=== PATIENT | male | born 1985 | race Caucasian/White ===

== ENCOUNTER 2024-12-30 02:46 | Emergency (ER) | payer BC, SELFPAY ==
[2024-12-30 02:46] VITALS: BMI 29.1
[2024-12-30 02:56] VITALS: BP 135/89; PULSE 80; RESP 17; TEMP 36.7; O2SAT 97
--- NOTE | 2024-12-30 03:30 | EDNOTE_ITS ---
ED Dental RME/HPI General Chief complaint: General Adult/Misc Complain Stated complaint: HIGH BLOOD GLUCOSE Time Seen by Provider: 12/30/24 03:20 Source: patient Arrival date/time: 12/30/24 02:46 Mode of arrival: ambulatory Limitations: no limitations RME / HPI RME / HPI Narrative: Dr. Machado?s Main ED Evaluation: 39-year-old male presents to the ED for evaluation of a tooth infection. He reports that he broke a tooth approximately two years ago but has been unable to seek dental care due to lack of insurance. Over the past few days, he has developed facial swelling and is seeking antibiotics for the infection. The patient describes the discomfort as infection pain rather than typical dental pain. He denies fever, chills, difficulty swallowing, difficulty breathing, or other systemic symptoms. No recent trauma or other medical complaints at this time. Related Data Home Medications ?Medication ?Instructions ?Recorded ?Confirmed Insulin Regular * (HUMULIN R *) 40 unit subcut DAILY # #0 04/24/13 insulin NPH isoph U-100 human 100 40 unit subcut CHAMBERLAIN ##0 04/24/13 unit/mL subcutaneous suspension (Humulin N NPH U-100 Insulin (isophane susp)) Previous Rx's ?Medication ?Instructions ?Recorded erythromycin 5 mg/gram (0.5 %) eye 1 ribbon Right eye QID 7 days ##0 04/24/13 ointment cephalexin 750 mg capsule (Keflex) 750 mg PO Q12H #14 caps 04/09/21 hydrocodone 5 mg-acetaminophen 325 1 tab PO BID PRN pa in #10 tabs 01/23/23 mg tablet ibuprofen 800 mg tablet 800 mg PO TID PRN pain #30 t abs 01/23/23 penicillin V potassium 500 mg 500 mg PO QID Dental inf ection 10 12/30/24 tablet days #40 tabs Allergies Allergy/AdvReac Type Severity Reaction Status Date / Time No Known Allergies Allergy Verified 12/30/24 02:50 Review of Systems Review of Systems Systems Reviewed: All systems reviewed, normal except as documented Past Medical History Past Medical History CARDIAC: Negative Congestive Heart Failure RESPIRATORY: Negative Chronic Obstructive Pulmonary Disease (COPD) GENITOURINARY: Negative Renal Disease ENDOCRINE: Positive Diabetes Mellitus Type 1; Negative Diabetes Mellitus Type 2 Social History SMOKING STATUS: Never smoker ED Exam Narrative Physical exam: The patient has poor dentition, with severe decay extending below the gumline on tooth #30, accompanied by adjacent gingival erythema, swelling, and tenderness. No visible abscess or drainage at this time. General Limitations: Present no limitations General appearance: Present alert and in no apparent distress Head Head exam: Present atraumatic Eye Eye exam: Present normal appearance, PERRL and EOMI ENT ENT exam: Present normal exam, normal oropharynx and mucous membranes moist Neck Neck exam: Present normal inspection, full ROM and trachea midline Chest Chest inspection: Present normal inspection and symmetric chest wall rise Respiratory Respiratory exam: Present normal lung sounds bilaterally Cardiovascular Cardiovascular exam: Present regular rate, normal rhythm and normal heart sounds Abdominal Exam Abdominal exam: Present soft and normal bowel sounds Extremities Exam Extremities exam: Present normal inspection and full ROM Back Exam Back exam: Present normal inspection and full ROM Neurological Exam Neurological exam: Present alert, oriented X3 and CN II-XII intact Psychiatric Psychiatric exam: Present normal affect and normal mood Skin Skin exam: Present warm, dry, intact and normal color Course Quality Measures none Orders Category Date Time Status Blood glucose [Bedside Blood Glucose] NOW Care 12/30/24 03:00 Active Vital Signs Vital signs: Vital Signs Temperature 98.1 F 12/30/24 02:56 Pulse Rate 80 12/30/24 02:56 Respiratory Rate 17 12/30/24 02:56 Blood Pressure 135/89 H 12/30/24 02:56 Pulse Oximetry (%) 97 12/30/24 02:56 Oxygen Delivery Method Room Air 12/30/24 02:56 Dental / Oral MDM Narrative MDM Narrative:: Scribe Attestation: Sary Lemons am scribing for and in the presence of Dr. Machado. Provider Notation: Although this document has been carefully reviewed, there may still be some phonetic and other typographical errors. These errors are purely grammatical due to imperfections in the software program and should not be construed in any way to compromise the substance of the patient's medical care during this visit. Patient data External records reviewed:: [facility] previous records Clinical information provided by:: patient Social determinants that could affect healthcare access:: none Patient has the following chronic illnesses:: T1DM How is presenting disease/condition affected by chronic disease/condition?: uneffected by Evaluation data The following diagnostics were reviewed and interpreted by me:: other (specify) (na) Lab and/or radiology exams considered but not ordered:: na Interpretation Summary: na Medications / Prescriptions Medications or Prescriptions considered but not ordered:: na Medication administrations:: na Consultations Consultation(s) initiated? (list below): No Diagnosis Dental Differential Diagnosis: gingival abscess, dental caries, toothache, den anika abscess and fracture of tooth Most likely diagnosis given after review of the tests above:: Dental infection Admission Indicated Admission indicated?: not indicated Admission Request Was there a request for admission?: No Disposition Plan Disposition Plan: Admit Discharge Plan Plan Patient Disposition: HOME (Self Care) Disposition Comment: Safe for discharge home Patient condition on transfer: Stable Prescriptions/Referrals Prescriptions/Med Rec: New penicillin V potassium 500 mg tablet 500 mg PO QID 10 Days Qty: 40 0RF No Action insulin NPH isoph U-100 human [Humulin N NPH U-100 Insulin] 100 U/ML suspension 40 unit Sub-Q CHAMBERLAIN Qty: 0 Insulin Regular * (HUMULIN R *) 100 U/ML VIAL 40 unit Sub-Q DAILY Qty: 0 erythromycin 1 GM ointment 1 ribbon Right eye QID 7 Days Qty: 0 0RF cephalexin [Keflex] 750 mg capsule 750 mg PO Q12H Qty: 14 0RF ibuprofen 800 mg tablet 800 mg PO TID PRN (Reason: pain) Qty: 30 0RF hydrocodone-acetaminophen 5-325 mg tablet 1 tab PO BID MDD 10 PRN (Reason: pain) Qty: 10 0RF Problem List Clinical Impression: Dental infection Patient/Caregiver Discharge Instructions Discharge Activity: activity as tolerated Education Materials: ED Tooth Abscess Additional Instructions: Please return to the emergency department if you have any worsening or any further medical problems and we will help you. 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 You should take 1 penicillin pill 4 times per day until they are completely gone even if you feel better before that. You should also follow-up with a dentist [facility]. Print Language: Burkinan Stand Alone Forms: Erin Award Info., Patient Portal Info Letter
[2024-12-30] MEDS: PENICILLIN VK 250 MG TABLET 500 MG PO (03:56)
== END 2024-12-30 04:01 | disposition home or self-care (01) ==
LOC: SERX 04:44
PROVIDERS: Emergency Provider Emergency Medicine; PCP Family Medicine
DX: K04.7 Periapical abscess without sinus (principal)
CPT/HCPCS: 99282; A9270

== ENCOUNTER 2025-10-09 11:19 | Emergency (ER) | payer BC, SELFPAY ==
--- NOTE | 2025-10-09 12:02 | PC.NURSE ---
PT LEFT BEFORE TRAIGE. STATES HE DID NOT WANT TO WAIT AND REFUSED TO SIGN AMA FORM
== END 2025-10-09 12:10 | disposition left against medical advice (07) ==
LOC: SERX 12:32
PROVIDERS: Emergency Provider Emergency Medicine
DX: Z53.21 Procedure and treatment not carried out due to patient leaving prior to being seen by health care provider (principal)
CPT/HCPCS: 99281